=== PATIENT | male | born 1970 | race African-American/Black ===

== ENCOUNTER 2016-12-16 10:59 | Emergency (ER) | payer SELFPAY ==
[~2016-12-16] VITALS: Ht 170.2 cm; Wt 99.9 kg
[2016-12-16] MEDS ORDERED: KETOROLAC 30 MG/1 ML ONE (12:30)
[2016-12-16] MEDS ORDERED: DIAZEPAM 5 MG TABLET PO ONE (12:30)
[2016-12-16] MEDS ORDERED: DIAZEPAM 5 MG TABLET ONE ×2 (12:30→13:11)
[2016-12-16] MEDS ORDERED: KETOROLAC 30 MG/1 ML IM ONE (12:30)
[2016-12-16 13:52] VITALS: BP 147/83
== END 2016-12-16 13:56 | disposition home or self-care (01) ==
LOC: ED 13:40
DX: S39.012A Strain of muscle, fascia and tendon of lower back, initial encounter (principal); G89.29 Other chronic pain; X58.XXXA Exposure to other specified factors, initial encounter; Y93.89 Activity, other specified; Y92.89 Other specified places as the place of occurrence of the external cause; Y99.8 Other external cause status
CPT/HCPCS: 72110; 96372; 99284; J1885